=== PATIENT | female | born 1975 | race African-American/Black ===

== ENCOUNTER 2020-12-30 07:47 | Inpatient (IN) | payer BC ==
[~2020-12-30] VITALS: Ht 175.3 cm; Wt 86.7 kg
[2020-12-30] VITALS (10 sets, daily range): BP systolic 141–188; BP diastolic 87–111
[~2020-12-30 07:47] MED LIST: BACTRIM DS TAB1 EACH PO; COUMADIN 5 MG TA5 MG PO; DARVOCET A5001 EAC1 PO; GLUCOPHAGE500 MG PO; LANTUS SC; LOVENOX SC; NORCO 5-325 TA1 EACH PO
[2020-12-30] MEDS ORDERED: METFORMIN HCL500 MG PO (08:20)
[2020-12-30] MEDS ORDERED: XARELTO20 MG PO (08:21)
[2020-12-30] MEDS ORDERED: OZEMPIC1 MG/0.75 SUBQ (08:24)
[2020-12-30 08:33] LABS: URINE BILIRUBIN NEGATIVE (Negative); URINE BLOOD NEGATIVE (Negative); URINE CLARITY CLEAR; URINE COLOR YELLOW; URINE GLUCOSE-RANDOM* NEGATIVE (Negative); URINE KETONES NEGATIVE (Negative); URINE LEUKOCYTES-REFLEX NEGATIVE (Negative); URINE NITRITE-REFLEX NEGATIVE (Negative); URINE PROTEIN (DIPSTICK) NEGATIVE (Negative); URINE SPECIFIC GRAVITY 1.015 (1.005-1.035); URINE UROBILINOGEN 0.2 E.U./dl (0.2-1.0)
[2020-12-30 08:35] LABS: ABSOLUTE NEUTROPHILS 2.3 thou/uL (1.4-8.2); EOSINOPHILS 2.6 % (0.0-3.0); HEMOGLOBIN 12.8 gm/dL (12.0-15.0); LYMPHOCYTES 39.5 % (24.0-44.0); MCH 25.6 pg (26.0-34.0); MCV 79.9 fL (80.0-100.0); MONOCYTES 9.9 % (1.0-8.0); PLATELET COUNT 319 thou/uL (150-400); RBC 5.01 mil/uL (4.20-5.00); WBC 4.8 thou/uL (4.0-11.0)
[2020-12-30 08:39] LABS: ANION GAP 7 mmol/L (7-16); BUN 6 mg/dL (7-18); CALCIUM 8.5 mg/dL (8.5-10.1); CHLORIDE 105 mmol/L (98-107); CO2 28 mmol/L (21-32); CREATININE 0.8 mg/dL (0.6-1.0); GLUCOSE 174 mg/dL (74-106); POTASSIUM 3.8 mmol/L (3.5-5.1); SODIUM 140 mmol/L (136-145)
[2020-12-30 08:48] LABS: APTT 25.5 Seconds (24.5-32.8); PROTIME 10.1 Seconds (9.3-11.4)
[2020-12-30 08:50] LABS: ALBUMIN 3.7 g/dL (3.4-5.0); DIRECT BILIRUBIN < 0.1 mg/dL (<0.1-0.2); LIPASE 1017 U/L (73-393); SGOT 11 U/L (15-37); SGPT 19 U/L (30-65); TOTAL BILIRUBIN 0.3 mg/dL (0.2-1.0)
[2020-12-30 13:40] LABS: CHOLESTEROL 238 mg/dL (<200); HDL CHOLESTEROL 67 mg/dL (>40); LDL CHOLESTEROL 139 mg/dL (<100); TC:HDL 3.6 Ratio (Not establshd); TRIGLYCERIDE 160 mg/dL (<150); VLDL 32 mg/dL (<40)
[2020-12-30 13:44] LABS: SERUM ASSESSMENT Clear
--- NOTE | 2020-12-30 15:39 | NUR ---
PT DRANK APPROXIMATELY 30ML OF WATER, 30 MINUTES LATER FOUND PT VOMITING GREEN FLUID IN BATHROOM. DR EVERETT CORTES.
[2020-12-30] MEDS ORDERED: SUPER THERAVIT1 EACH PO (17:49)
--- NOTE | 2020-12-30 17:50 | NUR ---
UPDATED MED REC TO PT MEDICATIONS
--- NOTE | 2020-12-30 18:16 | NUR ---
ADMISSION NOTE: PT ADMITTED ON UNIT AT 12:20. PT ALERT AND ORIENTED X 4. PT STATES PAIN IS A 7/10 ON HER MID BACK. GAVE IV MORPHINE WITH FULL PAIN RELIEF. PT ON RA. REVIEWED ORDERS, MED SURG STATUS IN MOST RECENT ORDER. PT INDEPENDANT TO BATHROOM. ORIENTED PT TO ROOM, WITH CALL LIGHT AND BEDSIDE TABLE WITHIN REACH. PT DRANK APROXIMATELY 30 ML OF WATER AROUND APPROXIMATELY 1500 AND HAD GREEN EMESIS. GAVE PT ZOFRAN WITH FULL RELIEF FROM NAUSEA. PT ON CLEAR LIQUID DIET TOLERATED. PT DENIES NEEDS AND WILL CONTINUE TO MONITOR.
--- NOTE | 2020-12-30 21:22 | NUR ---
PT ALERT AND ORIENTED X4. BP ELEVATED. PT NAUSEATED WITH EMESIS NOTED. C/O PAIN 8/10 LOWER BACK PAIN. 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 PT THINKS MORPHONE IS MAKING HER NAUSEATED. FENTANYL 50 MG IV GIVEN. HYDRALAZINE 10 MG IV GIVEN. WILL GIVE ZOFRAN WHEN ITS TIME. BED DOWN. CALL LIGHT IN REACH. EXPLAINED FALL PRECAUTIONS TO PT. STARTED PT ON CLEAR LIQUIDS.
--- NOTE | 2020-12-30 21:33 | NUR ---
PT STATED BACK PAIN HAS GONE DOWN TO A 2/10.
[2020-12-31 03:10] VITALS: BP 130/86
[2020-12-31 03:58] LABS: CALCIUM 8.4 mg/dL (8.5-10.1); CREATININE 0.6 mg/dL (0.6-1.0); POTASSIUM 3.9 mmol/L (3.5-5.1)
--- NOTE | 2020-12-31 04:19 | NUR ---
PT PROGRESSING SLOWY TOWARDS D/C GOALS. VSS AFEBRILE THIS AM. C/O NAUSEA. COMPAZINE GIVEN IV ORDERED SINCE IT WAS NOT TIME FOR ZOFRAN YET. SHE DENIED PAIN. BP BETTER THIS AM.
[2020-12-31 04:39] VITALS: BP 132/84
[2020-12-31 07:25] VITALS: BP 123/86
[2020-12-31 15:15] VITALS: BP 123/86
--- NOTE | 2020-12-31 16:07 | NUR ---
DISCHARGE NOTE: DISCHARGED PT AT 15:25. PT SIGNED CONSENTS AND IN CHART. PT GIVEN DISCHARGE INSTRUCTIONS ON WHEN TO FOLLOW UP WITH HER PCP, LONG SIGNS AND SYMPTOMS TO LOOK OUT FOR IF NEEDED TO COME BACK TO HOSPITAL. PT GIVEN WORK RELEASE NOTE PER DR. FLOYD. DISCONTINUED PT IV. ALL BELONGINGS WITH PT AT TIME OF DISCHARGE.
--- NOTE | 2021-01-01 07:29 | EKG ---
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
== END 2020-12-31 15:32 | disposition home or self-care (01) | DRG 440 ==
LOC: ER 07:47 → 3W 12:14 → EROBS 12:14 → 3W 12:15
PROVIDERS: Emergency Medicine; ADMIT Hospitalist; ATTEND Hospitalist
DX: K85.00 Idiopathic acute pancreatitis without necrosis or infection (principal); E11.9 Type 2 diabetes mellitus without complications; Z20.822 Contact with and (suspected) exposure to COVID-19; Z86.718 Personal history of other venous thrombosis and embolism; Z98.42 Cataract extraction status, left eye; Z79.899 Other long term (current) drug therapy
CPT/HCPCS: 10879